=== PATIENT | male | born 1980 | race Two or more races ===

== ENCOUNTER 2021-09-21 09:40 | Outpatient (CLI) | payer OTHER | END 2021-09-21 09:52 | disposition home or self-care (01) | LOC: SONOGRAMA 09:40 | PROVIDERS: ATTEND General Practice | DX: E03.9 Hypothyroidism, unspecified (principal) ==

== ENCOUNTER 2022-10-23 14:35 | Outpatient (CLI) | payer OTHER | END 2022-10-23 14:57 | disposition home or self-care (01) | LOC: SONOGRAMA 14:35 | PROVIDERS: ATTEND General Practice | DX: E03.9 Hypothyroidism, unspecified (principal) ==